=== PATIENT | male | born 1995 | race Asian ===

== ENCOUNTER 2020-04-25 11:43 | Emergency (ER) | payer SELFPAY | END 2020-04-25 17:45 | disposition left against medical advice (07) | LOC: MED 11:43 | DX: M79.644 Pain in right finger(s) (principal); Z53.21 Procedure and treatment not carried out due to patient leaving prior to being seen by health care provider | CPT/HCPCS: 73140; 99281 ==

== ENCOUNTER 2023-10-21 14:01 | Emergency (ER) | payer MEDICAID ==
[~2023-10-21] VITALS: Ht 180.3 cm; Wt 59.0 kg
[~2023-10-21 14:01] MED LIST: IBUP-2213 PO
[2023-10-21 14:04] VITALS: BP 107/74; PULSE 81; RESP 18; TEMP 97.3; O2SAT 98
[2023-10-21] MEDS: BACITRACIN OINT 500 UNITS/GM PKT TP ONE (14:33)
[2023-10-21] MEDS ORDERED: BACI-418 TP (14:52)
[2023-10-21 15:04] VITALS: BP 107/74; PULSE 81; RESP 18; TEMP 97.3; O2SAT 98
== END 2023-10-21 15:03 | disposition home or self-care (01) ==
LOC: MED 14:01
DX: S60.512A Abrasion of left hand, initial encounter (principal); S60.419A Abrasion of unspecified finger, initial encounter; Z79.1 Long term (current) use of non-steroidal anti-inflammatories (NSAID); Z79.899 Other long term (current) drug therapy; V00.131A Fall from skateboard, initial encounter; Y93.I9 Activity, other involving external motion; Y92.488 Other paved roadways as the place of occurrence of the external cause; Y99.8 Other external cause status
CPT/HCPCS: 73130; 90471; 90715; 99283; Q0092